=== PATIENT | male | born 1980 | race Caucasian/White ===

== ENCOUNTER 2018-06-17 21:52 | Emergency (ER) | payer MEDICAID ==
[~2018-06-17] VITALS: Wt 90.7 kg
[2018-06-18] MEDS ORDERED: KETO5DRO71 OP (01:26)
[2018-06-18] MEDS ORDERED: FLUT9.9S NASAL (01:26)
[2018-06-18] MEDS ORDERED: MED4DP PO (01:26)
--- NOTE | 2018-06-18 01:32 | ERD ---
ER Documentation Chief Complaint Chief Complaint cough, sore throat, watery eyes, runny nose x 2 weeks HPI This is a 37-year-old male presents to the ED complaining of sore throat, runny nose, and watery eyes times 2 weeks. Patient states he has seasonal allergies. He states he has been using Claritin without any relief. He is requesting additional medications. He denies any cough. Denies any nausea, vomiting, fevers, chills. Denies any difficulty breathing or shortness of breath or chest pain. No other complaints. ROS All systems reviewed and are negative except as per history of present illness. Medications Home Meds Active Scripts Ketotifen Fumarate (ZADITOR) 5 Ml Drops, 1 DROP OP BID, #1 BOTTLE Prov:DAVIAN MAYES PA-C 06/18/18 Methylprednisolone* (Medrol* DOSE PACK) 4 Mg/Dose-Pack Tab.ds.pk, 4 MG PO . DIRECTED, #1 PACKET Prov:DAVIAN MAYES PA-C 06/18/18 Fluticasone Propionate (Flonase Allergy Relief) 9.9 Ml [place].susp, 1 SPRAY NASAL DAILY, #1 BOTTLE TO EACH NOSTRIL Prov:DAVIAN MAYES-C 06/18/18 PMhx/Soc Medical and Surgical Hx: pt denies Surgical Hx Hx Substance Use: No Hx Tobacco Use: No Smoking Status: Never smoker Physical Exam Vitals Vital Signs Date Temp Pulse Resp B/P (MAP) Pulse Ox O2 O2 Flow FiO2 Time Delivery Rate 06/17/18 98.5 86 20 142/83 96 21:55 (102) Physical Exam Const: No acute distress Head: Atraumatic Eyes: + Bilateral conjunctival injection, clear watery discharge. Extra movements intact. PERRL ENT: + Boggy nasal turbinates. Normal External Ears, Nose and Mouth. + Postnasal drip seen in the posterior oropharynx. No tonsillar edema or exudates. Uvula midline. No sinus tenderness. Neck: Full range of motion. No meningismus. Resp: Clear to auscultation bilaterally Cardio: Regular rate and rhythm, no murmurs Abd: Soft, non tender, non distended. Normal bowel sounds Skin: No petechiae or rashes Back: No midline or flank tenderness Ext: No cyanosis, or edema Neur: Awake and alert Psych: Normal Mood and Affect Procedures/MDM MDM: This is a 37-year-old male presents to the ED with allergic rhinitis type symptoms. He is afebrile here. Vital signs are normal. No signs of hypoxia or respiratory distress. Clinical history not consistent with bacterial sinusitis. Symptoms are likely due to allergies. Will treat with Rx Flonase, Medrol Dosepak, antihistamine eyedrops. I have low suspicion for pneumonia, meningitis, mastoiditis, or any other emergent infection. Patient can be discharged home with close outpatient follow-up. Strict precautions discussed. PRESCRIPTIONS: Flonase, Medrol Dosepak, antihistamine eyedrops.. SPECIALIST FOLLOW UP RECOMMENDED: None Patient has been advised to follow up with primary care in 1-2 days. Departure Diagnosis: Primary Impression: Rhinosinusitis Condition: Stable Patient Instructions: Nasal Allergies: Related Problems Referrals: [facility] YOU HAVE RECEIVED A MEDICAL SCREENING EXAM AND THE RESULTS INDICATE THAT YOU DO NOT HAVE A CONDITION THAT REQUIRES URGENT TREATMENT IN THE EMERGENCY DEPARTMENT. FURTHER EVALUATION AND TREATMENT OF YOUR CONDITION CAN WAIT UNTIL YOU ARE SEEN IN YOUR DOCTORS OFFICE WITHIN THE NEXT 1-2 DAYS. IT IS YOUR RESPONSIBILITY TO MAKE AN APPOINTMENT FOR [place]. IF YOU HAVE A PRIMARY DOCTOR --you should call your primary doctor and schedule an appointment IF YOU DO NOT HAVE A PRIMARY DOCTOR YOU CAN CALL OUR PHYSICIAN REFERRAL HOTLINE AT IF YOU CAN NOT AFFORD TO SEE A PHYSICIAN YOU CAN CHOSE FROM THE FOLLOWING [facility] [address] [facility] [address] [facility]. [facility] [address] [facility]. [facility] [address] [facility]. [facility] [address] [facility]. [facility]. [address] [facility]. [facility] YOU HAVE RECEIVED A MEDICAL SCREENING EXAM AND THE RESULTS INDICATE THAT YOU DO NOT HAVE A CONDITION THAT REQUIRES URGENT TREATMENT IN THE EMERGENCY DEPARTMENT. FURTHER EVALUATION AND TREATMENT OF YOUR CONDITION CAN WAIT UNTIL YOU ARE SEEN IN YOUR DOCTORS OFFICE WITHIN THE NEXT 1-2 DAYS. IT IS YOUR RESPONSIBILITY TO MAKE AN APPOINTMENT FOR [place] [facility]ARE. IF YOU HAVE A PRIMARY DOCTOR --you should call your primary doctor and schedule and appointment IF YOU DO NOT HAVE A PRIMARY DOCTOR YOU CAN CALL OUR PHYSICIAN REFERRAL HOTLINE AT . IF YOU CAN NOT AFFORD TO SEE A PHYSICIAN YOU CAN CHOSE FROM THE FOLLOWING [facility] INSTIT[facility]IONS: [facility] [address] [place], [place] [id number] [place] [address] [address] [place], [place] [id number] [place] [address] [address] [place] [address] [facility] URGENT CARE/SPECIALTIES Additional Instructions: Paciente aconseja volver a Departamento de urgencias inmediatamente para sntomas nuevos o que empeoran . Paciente aconseja posteriores con el PCP en 1-2 gonsalez. Si el paciente no tiene ninguna de atencin primaria pueden seguir con [place] [id number] [place] [address] o [facility] [address] [place] [id number] DAVIAN MAYES PA-C Jun 18, 2018 01:32
[2018-06-18 01:55] VITALS: BP 119/79; PULSE 82; RESP 20
== END 2018-06-18 02:06 | disposition home or self-care (01) ==
LOC: FTE 21:52
DX: J30.9 Allergic rhinitis, unspecified (principal)
CPT/HCPCS: 99283